=== PATIENT | male | born 1970 | race Caucasian/White ===

== ENCOUNTER 2018-03-22 08:59 | Emergency (ER) | payer MEDICARE, OTHER ==
--- NOTE | 2018-03-22 09:21 | ED Physician Documentation ---
General Adult - HISTORIAN Historian: patient - HPI Stated Complaint: rib pain Chief Complaint: General Adult Additional Information: Fell onto someone else's knee last evening while playing. Has right rib pain now. No treatment attempted. No other associated signs. - ROS CONST: no problems - PAST HX Past History: other (bipolar) Other History: other (back pain) Surgeries/Procedures: other (varicose veins) Allergies/Adverse Reactions: Allergies Allergy/AdvReac Type Severity Reaction Status Date / Time No Known Allergies Allergy Unverified 03/22/18 09:16 Home Medications: Ambulatory Orders Medication Instructions Recorded Aripiprazole [Aripiprazole] 03/22/18 [place] Carbonate 03/22/18 Omeprazole [Omeprazole] 03/22/18 Propranolol HCl [Inderal] 10 mg PO 03/22/18 Quetiapine Fumarate [Seroquel] 03/22/18 - SOCIAL HX Smoking History: cigarettes - FAMILY HX Family History: No - VITAL SIGNS Vital Signs: Vital Signs Temp Pulse Resp BP Pulse Ox 74 16 115/76 99 03/22/18 09:05 03/22/18 09:05 03/22/18 09:05 03/22/18 09:05 - REVIEWED ASSESSMENTS Nursing Assessment Reviewed: Yes Vitals Reviewed: Yes Progress - Progress Progress: Patient Study Name: JANUARY LAMA Date: Mar 22, 2018 9:22:50 AM CDT Modality Type: DX Gender: M Description: CHEST : 68 Institution: [facility] Physician: AMISHA WHARTON - Examination: Plain film right ribs History: RT RIBS W/ PA CHEST, PAIN IN MID RT RIBS AFTER TAKING A KNEE TO THE RIBS YESTERDAY (Hx) Findings: 4 views of the chest and right ribs demonstrates normal cortical margins. No fracture or dislocation. Underlying parenchymal without abnormality. Normal cardiac silhouette. No consolidative process/infiltrate. Impression: No rib fracture/abnormality. No acute pulmonary process. Electronically signed on Mar 22, 2018 9:46:24 AM CDT by: Tomy Oconnor ED Results Lab/Radiology - Orders Orders: ED Orders Category Date Time Status RIBS UNILATERAL W/ PA CHEST [RAD] Stat Exams 03/22/18 Ordered General Adult Physical Exam - PHYSICAL EXAM GENERAL APPEARANCE: mild distress EENT: eye inspection normal NECK: normal inspection RESPIRATORY: no resp distress, breath sounds normal, other (points to right anterolateral thorax, below right breast) CVS: reg rate & rhythm, heart sounds normal, no murmur BACK: normal inspection SKIN: warm/dry, normal color EXTREMITIES: normal range of motion (gait and stance) NEURO: CN's nml as tested, motor nml, sensation nml Discharge Clincal Impression: Contusion of rib on right side Qualifiers: Encounter type: initial encounter Qualified Code(s): S20.211A - Contusion of right front wall of thorax, initial encounter Referrals: Primary Doctor,No [Primary Care Provider] - 2 Days Additional Instructions: Ice to the sore area for 30 minutes of each hour you are awake for 3 days. You can take 1000 mg of tylenol a day if needed for discomfort. Condition: Good Disposition: 01 HOME, SELF-CARE Decision to Admit: NO Decision Time: 10:00
[2018-03-22 10:17] VITALS: BP 120/79
--- NOTE | 2018-03-22 19:02 | Diagnostic Imaging Report ---
AMISHA WHARTON [facility] [address] [facility] [address] [address] Report Submission Date: Mar 22, 2018 9:46:24 AM CDT Patient Study Name: JANUARY LAMA Date: Mar 22, 2018 9:22:50 AM CDT Modality Type: DX Gender: M Description: CHEST : 68 Institution: [facility] Physician: AMISHA WHARTON Examination: Plain film right ribs History: RT RIBS W/ PA CHEST, PAIN IN MID RT RIBS AFTER TAKING A KNEE TO THE RIBS YESTERDAY (Hx) Findings: 4 views of the chest and right ribs demonstrates normal cortical margins. No fracture or dislocation. Underlying parenchymal without abnormality. Normal cardiac silhouette. No consolidative process/infiltrate. Impression: No rib fracture/abnormality. No acute pulmonary process. Electronically signed on Mar 22, 2018 9:46:24 AM CDT by: Tomy SENA
== END 2018-03-22 10:07 | disposition home or self-care (01) ==
LOC: ED 08:59
DX: S20.211A Contusion of right front wall of thorax, initial encounter (principal); W19.XXXA Unspecified fall, initial encounter; Y92.9 Unspecified place or not applicable
CPT/HCPCS: 71101; 99283

== ENCOUNTER 2019-01-08 19:36 | Emergency (ER) | payer MEDICARE, OTHER ==
[2019-01-08] MEDS ORDERED: AMOXICILLIN/POT 875/125 1 EACH PO ONE (19:52)
--- NOTE | 2019-01-08 19:54 | ED Physician Documentation ---
Upper Respiratory Symptoms - HISTORIAN Historian: patient - HPI Stated Complaint: Congestion for a week, sore throat Chief Complaint: Cough/ Upper Respiratory Additional Information: Patient presents to ED with a 7 day history of cough, nasal congestion and sore throat. Patient denies fever. Onset: days ago (7) Duration: intermittent episodes Context: denies: recent foreign travel Severity: moderate Associated Symptoms: runny nose, sinus pain, sinus drainage, sore throat. denies: fever Worsened by Deep Breath: No Further Comments: no - ROS CONST/EYES: denies: weakness CVS/RESP: denies: shortness of breath LYMPH: denies: rash GI/: denies: vomiting, nausea NEURO/PSYCH: denies: fainting MS/SKIN: denies: muscle aches - PAST HX Lung Disease: COPD PE Risk Factors: none Surgeries/Procedures: none Allergies/Adverse Reactions: Allergies Allergy/AdvReac Type Severity Reaction Status Date / Time carbamazepine [From Tegretol] Allergy Verified 01/08/19 19:51 Home Medications: Ambulatory Orders Medication Instructions Recorded Aripiprazole 03/22/18 [place] Carbonate (Nf) [Eskalith 03/22/18 (Nf)] Omeprazole 03/22/18 Propranolol HCl [Inderal] 10 mg PO 03/22/18 Quetiapine Fumarate [Seroquel] 03/22/18 - SOCIAL HX Smoking History: cigarettes, greater than 1 pack/day Alcohol Use: none Drug Use: none - FAMILY HX Family History: none - VITAL SIGNS Vital Signs: Vital Signs Temp Pulse Resp BP Pulse Ox 99.9 F H 98 H 16 137/98 94 01/08/19 19:37 01/08/19 19:37 01/08/19 19:37 01/08/19 19:37 01/08/19 19:37 - REVIEWED ASSESSMENTS Nursing Assessment Reviewed: Yes Vitals Reviewed: Yes ED Results Lab/Radiology - Orders Orders: ED Orders Category Date Time Status Amoxicillin/Potassium Clav [Augmentin 875Mg/125Mg] Med 01/08/19 19:52 Once 1 each PO NOW ONE Upper Respiratory Symptoms - EXAM General Appearance: no acute distress, alert EENT: eyes nml inspection, pain over sinuses, maxillary, rhinorrhea, airway nml Neck: supple Respiratory: no resp. distress, breath sounds nml Abdomen: non-tender, nml bowel sounds CVS: reg rate & rhythm, heart sounds normal Skin: color nml, no rash, warm,dry Extremities: non-tender, no edema Neuro/Psych: oriented x3, mood/affect nml Discharge Clincal Impression: Acute sinusitis Qualifiers: Sinusitis location: unspecified location Recurrence: non-recurrent Qualified Code(s): J01.90 - Acute sinusitis, unspecified Clincal Impression: (Ruled Out): Upper respiratory infection Referrals: Leila Encinas, PRN [Primary Care Provider] - 2 Days Additional Instructions: 1. Tylenol and/or Ibuprofen as needed for pain 2. Sinus irrigation is beneficial 3. Take Augmentin as prescribed and finish the course 4. Follow up with PCP within 1 week 5. Return to ER for new or worsening symptoms Condition: Stable Disposition: 01 HOME, SELF-CARE Decision to Admit: NO Date of Decison to Admit: 01/08/19 Decision Time: 19:57
[2019-01-08 19:58] VITALS: BP 137/98
== END 2019-01-08 20:00 | disposition home or self-care (01) ==
LOC: ED 19:36
DX: J01.90 Acute sinusitis, unspecified (principal); Z72.0 Tobacco use
CPT/HCPCS: 99282; 99283